=== PATIENT | female | born 1990 | race Caucasian/White ===

== ENCOUNTER 2023-05-21 02:35 | Emergency (ER) | payer BC, SELFPAY ==
[2023-05-21 02:37] VITALS: BP 103/68
[2023-05-21] MEDS: NSS 1000 IV (03:40)
[2023-05-21] MEDS: ZOFRAN 4 MG IV (03:42)
[2023-05-21 03:43] VITALS: BP 104/57
[2023-05-21 03:43] LABS: % Basophils 0.3 % (0-2); % Eosinophils 0.3 % (0-6); % Immature Granulocytes 0.4 % (0-0.5); % Lymphocytes 8.7 % (20.5-51.1); % Neutrophils 88.3 % (42.2-75.2); Absolute Lymphocytes 0.7 10^3/uL (1.2-3.4); Absolute Monocytes 0.2 10^3/uL (0.1-0.6); Absolute Neutrophils 6.6 10^3/uL (1.4-6.5); Hematocrit 34.6 % (37.0-47.0); Hemoglobin 12.3 g/dL (12.0-16.0); Mean Corp Hgb Conc. 35.5 g/dL (33.0-37.0); Mean Corpuscular Hgb 31.8 pg (27.0-31.0); Mean Corpuscular Volume 89.4 fL (81.0-99.0); Mean Platelet Volume 10.2 fL (7.4-10.4); Nucleated Red Blood Cells % 0 %; Platelet Count 157 10^3/uL (130-400); Red Blood Cell Count 3.87 10^6/uL (4.20-5.40); Red Cell Dist. Width 11.9 % (11.5-14.5); White Blood Cell Count 7.5 10^3/uL (4.8-10.8)
[2023-05-21 03:51] LABS: Erythrocyte Sed Rate 1 mm/hour (0-20)
--- NOTE | 2023-05-21 03:52 | ED.GENMED ---
History of Present Illness
<RAUL Fields - Last Filed: 05/21/23 05:54>
General
Chief Complaint: Headache
Source: patient
Exam Limitations: none
Time Seen by Provider: 05/21/23 02:45
Nursing documentation reviewed up to this point in time: agreed with
Travel History
Have you had any contact with someone who has COVID-19?: No
Do you have any symptoms of coronavirus? Fever > 100 degrees, chills, cough, shortness of breath, sore throat, loss of taste or smell, muscle aches, or headache?: No
History of Present Illness
History of Present Illness:
32 y/o F presents to ED complaining up headache and vomiting at 0145. Patient states she woke from her sleep shaking, SOB and dizzy. Patient states when she sat up in bed she vomited. Patient reports she has vomited 4x since, vomit is nonbloody and
non-bilious. Patient reports SOB has resolved and shaking has since gotten better after shes been in ED bed. Patient also reports her hands, feet and calf have been throbbing. She states she has not been well hydrated and reports feeling dehydrated.
Patient also has 6/10 headache that has been constant since she woke up. She states the headache is in the front of her head and feels like a tight band around head. She states it is not like her usual migraines which are toward the back of her
head. She has not taken any medications. Patient reports she felt fine all day. She denies chest pain, palpitations, diarrhea, abdominal pain, leg pain, recent travel/flights, cough, congestion, sore throat, dysuria or back pain.
If applicable-neuro sx onset
Onset of symptoms known: Yes
Date of onset of symptoms: 05/21/23
Time of onset of symptoms: 01:45
Review of Systems
<RAUL Fields - Last Filed: 05/21/23 05:54>
Review of Systems
Allergies reviewed?: Yes
All Other Systems: ROS reviewed and negative except as documented in HPI and ROS
Constitutional: Reports sleep disturbance and chills
EENT: Reports no symptoms
Respiratory: Reports trouble breathing
Cardiac: Reports no symptoms
ABD/GI: Reports vomiting
: Reports no symptoms
Musculoskeletal: Reports no symptoms
Skin: Reports no symptoms
Neurological: Reports dizzy and headache
Endocrine: Reports no symptoms
Hematologic/Lymphatic: Reports no symptoms
Psychiatric: Reports no symptoms
Phy Exam
<RAUL Fields - Last Filed: 05/21/23 05:54>
General Physical Exam
General Presentation: well appearing and no apparent distress
General age: appears stated age
General Skin: warm and dry
General Habitus: normal
General Mental: alert
General Hydration: appears well hydrated
ENT Exam
ENT Exam: EOMI, TM's normal, pharynx normal and neck supple
Eye Exam
Eye Exam: PERRL, EOMI and conjunctiva normal
Cardiovascular Exam
Cardiovascular Exam: regular rate/rhythm, no edema, no gallop, no murmur and normal peripheral pulses
Pulmonary Exam
Pulmonary Exam: lungs clear, no respiratory distress, no rales, no crackles and no rhonchi
Gastrointestinal Exam
Gastrointestinal Exam: non tender, soft and non distended
Neurological Exam
Neurological Exam: alert and oriented x3
Skin Exam
Skin Exam: normal color, warm/dry and no rash
Psychiatric Exam
Psychiatric Exam: normal mood/affect
Course
<RUAL Fields - Last Filed: 05/21/23 05:54>
Orders/Labs/Results
Orders:
Orders
05/21/23 03:03
CT Head W/o Iv Contrast Urgent
Comment:
Reason For Exam: headache
05/21/23 03:18
Test Result ONCE
05/21/23 03:36
Complete Blood Count/With Diff Urgent
Comprehensive Metabolic Panel Urgent
Erythrocyte Sed Rate Urgent
HCG, Serum Qualitative Screen Urgent
PTT Urgent
Prothrombin Time Urgent
TSH Urgent
Troponin I Urgent
05/21/23 03:37
Ondansetron Injectable [Zofran] 4 mg .ROUTE .STK-MED ONE
05/21/23 03:41
Ondansetron Injectable [Zofran] 4 mg IV NOW STA
05/21/23 03:45
0.9% Sodium Chloride 1000 ml [Nss] 1,000 ml IV BOLUS
05/21/23 04:14
COVID-19 Antigen Urgent
Source: Nasal Swab
Influenza A+B Rapid Molecular Urgent
TIMI Source: Nasal Swab
Specimen Description:
05/21/23 05:13
Acetaminophen [Tylenol] 650 mg .ROUTE .STK-MED ONE
05/21/23 05:15
Acetaminophen [Tylenol] 650 mg PO NOW STA
Abnormal Lab Results
05/21/23
03:36
RBC 3.87 L 10^6/uL
(4.20-5.40)
Hct 34.6 L %
(37.0-47.0)
MCH 31.8 H pg
(27.0-31.0)
Absolute Neuts (auto) 6.6 H 10^3/uL
(1.4-6.5)
Absolute Lymphs (auto) 0.7 L 10^3/uL
(1.2-3.4)
Neutrophils % 88.3 H %
(42.2-75.2)
Lymphocytes % 8.7 L %
(20.5-51.1)
APTT 22.2 L Sec
(23.4-35.0)
BUN 21 H mg/dl
(7-17)
Glucose 101 H mg/dl
(70-99)
Total Protein 6.2 L g/dl
(6.3-8.2)
05/21/23 03:36
05/21/23 03:36
Vital Signs
Initial and Last Documented VS:
Initial Vital Signs
Temp Pulse Resp BP Pulse Ox
99.6 F 100 22 103/68 96
05/21/23 02:37 05/21/23 02:37 05/21/23 02:37 05/21/23 02:37 05/21/23 02:37
Last Documented Vital Signs
Temp Pulse Resp BP Pulse Ox
99.6 F 84 19 107/59 96
05/21/23 02:37 05/21/23 06:11 05/21/23 06:11 05/21/23 06:00 05/21/23 06:00
<Simon Siddiqi, - Last Filed: 05/21/23 06:18>
Orders/Labs/Results
Orders:
Orders
05/21/23 03:03
CT Head W/o Iv Contrast Urgent
Comment:
Reason For Exam: headache
05/21/23 03:18
Test Result ONCE
05/21/23 03:36
Complete Blood Count/With Diff Urgent
Comprehensive Metabolic Panel Urgent
Erythrocyte Sed Rate Urgent
HCG, Serum Qualitative Screen Urgent
PTT Urgent
Prothrombin Time Urgent
TSH Urgent
Troponin I Urgent
05/21/23 03:37
Ondansetron Injectable [Zofran] 4 mg .ROUTE .STK-MED ONE
05/21/23 03:41
Ondansetron Injectable [Zofran] 4 mg IV NOW STA
05/21/23 03:45
0.9% Sodium Chloride 1000 ml [Nss] 1,000 ml IV BOLUS
05/21/23 04:14
COVID-19 Antigen Urgent
Source: Nasal Swab
Influenza A+B Rapid Molecular Urgent
TIMI Source: Nasal Swab
Specimen Description:
05/21/23 05:13
Acetaminophen [Tylenol] 650 mg .ROUTE .STK-MED ONE
05/21/23 05:15
Acetaminophen [Tylenol] 650 mg PO NOW STA
Abnormal Lab Results
05/21/23
03:36
RBC 3.87 L 10^6/uL
(4.20-5.40)
Hct 34.6 L %
(37.0-47.0)
MCH 31.8 H pg
(27.0-31.0)
Absolute Neuts (auto) 6.6 H 10^3/uL
(1.4-6.5)
Absolute Lymphs (auto) 0.7 L 10^3/uL
(1.2-3.4)
Neutrophils % 88.3 H %
(42.2-75.2)
Lymphocytes % 8.7 L %
(20.5-51.1)
APTT 22.2 L Sec
(23.4-35.0)
BUN 21 H mg/dl
(7-17)
Glucose 101 H mg/dl
(70-99)
Total Protein 6.2 L g/dl
(6.3-8.2)
05/21/23 03:36
05/21/23 03:36
Vital Signs
Initial and Last Documented VS:
Initial Vital Signs
Temp Pulse Resp BP Pulse Ox
99.6 F 100 22 103/68 96
05/21/23 02:37 05/21/23 02:37 05/21/23 02:37 05/21/23 02:37 05/21/23 02:37
Last Documented Vital Signs
Temp Pulse Resp BP Pulse Ox
99.6 F 84 19 107/59 96
05/21/23 02:37 05/21/23 06:11 05/21/23 06:11 05/21/23 06:00 05/21/23 06:00
<RAUL Fields - Last Filed: 05/21/23 05:54>
MDM/Problems Addressed
Differential Diagnosis Includes:
Migraine
Viral gastroenteritis
Flu
COVID
Anxiety
MDM/Problems Addressed:
Patient is 32 y/o F who presents with vomiting, headache, and chills x [address] scan ordered and normal. Patient symptoms may be viral in etiology. Migraine considered given history of migraines. Will order flu/covid.
<RAUL Fields - Last Filed: 05/21/23 05:54>
*Critical Care Note
Total Time (30-74mins, 75-104mins- exclusive of procedures): Not Applicable
<RAUL Fields - Last Filed: 05/21/23 05:54>
Update Note
Update Note:
05/21/2023 0507: Patient reports she is doing better. Reports nausea and vomiting have subsided. She is not having chills/shaking anymore. Patient flu and covid negative. She is still reporting a headache.
ED Attending Note
<RAUL Fields - Last Filed: 05/21/23 05:54>
-
Portions of this chart may have been created with voice recognition software.� Occasional wrong word or��sound alike� substitutions may have occurred due to the inherent limitations of voice recognition software.
<Simon Siddiqi DO - Last Filed: 05/21/23 06:18>
ED Attending Note
Patient seen and examined by attending physician: Yes
I performed the substantive portion of visit, reviewed & personally made and approve the management plan that is documented in note by myself or CHRISTIAN.: Yes
ED Attending Note:
32-year-old female presents with a headache and vomiting that began around 1:45 AM. Patient suffers from migraines but states that this headache was not as severe. She feels that it is the typical headaches she gets after vomiting. She states
that she awakened from sleep shaking. She did have some brief shortness of breath and dizziness at the time. Patient has vomited 4 times since the initial incident. She states that she has been feeling dehydrated lately. Patient did not take any
medications. She is accompanied by her . Patient was seen in conjunction with the PA student. I have reviewed and agree with the history and treatment plan presented. On my independent physical exam, patient is awake, alert, and oriented
x3, no apparent distress. Heart is regular rate rhythm. Lungs clear to auscultation bilaterally without wheezes rales or rhonchi. Patient is mentating appropriately.
05/21/2023 0614 AM: Back in to see the patient. She is resting comfortably. She wishes to be discharged. She states that she feels better after fluids.
Discharge Plan
Departure
Patient Disposition: Home (Routine Discharge)
Date of Disposition: 05/21/23
Time of Disposition: 06:15
Patient with high blood pressure during this ER visit?: No
Condition: Good
Discharge Problem:
Weakness, Acute dehydration, Headache
Instructions: Dehydration, Adult (DC), Headache, Adult (DC)
Prescriptions:
No Action
No Current Medications
0
Referrals:
Kanchan Baldwin MD [Family Provider] -
Activity Restrictions/Additional Instructions:
It was a pleasure meeting you and taking part in your care. We hope for your continued healing and wellness.
Please read discharge instructions in their entirety. However, they are for general education and may not describe your exact diagnosis at discharge. Information on your ER visit and medical conditions were discussed with you along with appropriate
follow up information...
If indicated, please take your medications as instructed and indicated on discharge paperwork.
Please schedule a follow up appointment as directed. Call to schedule an appointment
Please return to the emergency department with ANY change in, persisting, or worsening of symptoms. If any of your symptoms do not improve, or persist, or become more severe within 6-12 hours, please return to the emergency department for further
care.
Please return to the emergency department if you develop a headache, neck pain/stiffness, fever greater than 100.4F, chest pain, shortness of breath, persistent nausea, vomiting, slurred speech, difficulty walking, numbness/tingling, weakness, signs
of infection or any other symptoms that are worrisome to you.
If you have any questions or concerns please do not hesitate to call the Hospital at or E-mail me directly at [email or web address]
Interventions
Interventions:
*Risk Screen - Suicide Last Done: 05/21/23 02:37
*General Assessment Last Done: 05/21/23 02:37
*Neglect/Abuse Screening Last Done: 05/21/23 02:37
ED- Fall Risk Assessment Last Done: 05/21/23 02:37
*ED COVID-19 Vaccine History Last Done: 05/21/23 02:37
*Nursing Disposition Last Done: 05/21/23 06:14
ED- Neurological Assessment Last Done: 05/21/23 03:45
[2023-05-21 03:54] LABS: INR 1.11; PT 14.4 Sec (11.4-14.6)
[2023-05-21 03:55] LABS: APTT 22.2 Sec (23.4-35.0)
[2023-05-21 03:58] LABS: HCG, Serum Qualitative Screen Negative
[2023-05-21 04:00] VITALS: BP 101/60
[2023-05-21 04:09] LABS: Troponin I < 0.012 ng/ml
[2023-05-21 04:10] LABS: ALT (SGPT) 21 U/L (0-35); AST (SGOT) 27 U/L (14-36); Albumin 3.7 g/dl (3.5-5.0); Alkaline Phosphatase 41 U/L (38-126); Blood Urea Nitrogen 21 mg/dl (7-17); Calcium 8.8 mg/dl (8.4-10.2); Carbon Dioxide 28 mmol/L (22-30); Chloride 103 mmol/L (98-107); Glucose 101 mg/dl (70-99); Potassium 3.7 mmol/L (3.5-5.1); Sodium 138 mmol/L (135-145); Total Bilirubin 1.1 mg/dl (0.2-1.3); Total Protein 6.2 g/dl (6.3-8.2); eGFR > 60.00
[2023-05-21 04:38] LABS: COVID-19 Antigen Negative (Negative)
[2023-05-21 04:38] LABS: TSH 2.06 uIU/ml (0.47-4.68)
[2023-05-21 05:00] VITALS: BP 105/62
[2023-05-21] MEDS: TYLENOL 650 MG PO (05:15)
[2023-05-21 06:00] VITALS: BP 107/59
== END 2023-05-21 06:21 | disposition home or self-care (01) ==
LOC: EMR 02:35
PROVIDERS: EMERGENCY PHYSICIAN Student in an Organized Health Care Education/Training Program; FAMILY PHYSICIAN Family Medicine
DX: R53.1 Weakness (principal); E86.0 Dehydration; R51.9 Headache, unspecified; R11.2 Nausea with vomiting, unspecified; F41.9 Anxiety disorder, unspecified
CPT/HCPCS: 99284; 96374; 96361; 70450; 80053; 84443; 84484; 84703; 85025; 85610; 85652; 85730; 87502; 87811

== ENCOUNTER → 2023-10-06 14:46 | Outpatient (REF) | payer BC, SELFPAY ==
[2023-10-06 16:24] LABS: % Basophils 0.7 % (0-2); % Eosinophils 0.3 % (0-6); % Immature Granulocytes 0.3 % (0-0.5); % Lymphocytes 25.9 % (20.5-51.1); % Monocytes 4.3 % (1.7-9.3); % Neutrophils 68.5 % (42.2-75.2); Absolute Lymphocytes 1.6 10^3/uL (1.2-3.4); Absolute Monocytes 0.3 10^3/uL (0.1-0.6); Absolute Neutrophils 4.2 10^3/uL (1.4-6.5); Hematocrit 37.5 % (37.0-47.0); Hemoglobin 13.1 g/dL (12.0-16.0); Mean Corp Hgb Conc. 34.9 g/dL (33.0-37.0); Mean Corpuscular Hgb 31.9 pg (27.0-31.0); Mean Corpuscular Volume 91.2 fL (81.0-99.0); Mean Platelet Volume 10.9 fL (7.4-10.4); Nucleated Red Blood Cells % 0 %; Platelet Count 213 10^3/uL (130-400); Red Blood Cell Count 4.11 10^6/uL (4.20-5.40); Red Cell Dist. Width 11.9 % (11.5-14.5); White Blood Cell Count 6.1 10^3/uL (4.8-10.8)
[2023-10-06 16:38] LABS: ALT (SGPT) 24 U/L (0-35); AST (SGOT) 33 U/L (14-36); Albumin 4.9 g/dl (3.5-5.0); Alkaline Phosphatase 48 U/L (38-126); Blood Urea Nitrogen 11 mg/dl (7-17); Calcium 9.6 mg/dl (8.4-10.2); Carbon Dioxide 24 mmol/L (22-30); Chloride 105 mmol/L (98-107); Glucose 78 mg/dl (70-99); Potassium 3.8 mmol/L (3.5-5.1); Sodium 140 mmol/L (135-145); Total Bilirubin 0.5 mg/dl (0.2-1.3); Total Protein 7.1 g/dl (6.3-8.2); eGFR > 60.00
[2023-10-06 16:50] LABS: Amylase 69 U/L (30-110); Lipase 61 U/L (23-300)
== END ==
LOC: RAD 14:46
PROVIDERS: ATTENDING PHYSICIAN Physician Assistant Medical
DX: R10.9 Unspecified abdominal pain (principal); D22.9 Melanocytic nevi, unspecified; R19.7 Diarrhea, unspecified; M54.9 Dorsalgia, unspecified
CPT/HCPCS: 36415; 76700; 80053; 82150; 83690; 85025

== ENCOUNTER → 2024-06-14 09:14 | Outpatient (REF) | payer BC, SELFPAY | LOC: RCS 09:14 | PROVIDERS: ATTENDING PHYSICIAN Nurse Practitioner | DX: R00.2 Palpitations (principal) | CPT/HCPCS: 93225; 93226 ==

== ENCOUNTER 2024-10-11 10:59 | Observation (INO) | payer BC, SELFPAY ==
[2024-10-11 11:10] VITALS: BP 101/64; BMI 21.9
[2024-10-11 11:33] LABS: Urine Character Clear (Clear)
== END 2024-10-11 14:26 | disposition home or self-care (01) ==
LOC: LDRP 10:59
PROVIDERS: ADMITTING PHYSICIAN Obstetrics & Gynecology; FAMILY PHYSICIAN Physician Assistant
DX: O99.891 Other specified diseases and conditions complicating pregnancy (principal); N13.30 Unspecified hydronephrosis; Z3A.27 27 weeks gestation of pregnancy; O99.342 Other mental disorders complicating pregnancy, second trimester; F32.A Depression, unspecified; F41.9 Anxiety disorder, unspecified
CPT/HCPCS: 59025; 76770; 76815; 81003; 87086; G0378

== ENCOUNTER → 2024-10-20 09:20 | Outpatient (REF) | payer BC, SELFPAY | LOC: PNTC 09:20 | PROVIDERS: ATTENDING PHYSICIAN Obstetrics & Gynecology | DX: Z34.02 Encounter for supervision of normal first pregnancy, second trimester (principal) | CPT/HCPCS: 36415; 86850; 86900; 86901; 96372; J2790 ==

== ENCOUNTER 2025-01-08 14:11 | Inpatient (IN) | payer BC, SELFPAY ==
[2025-01-08 14:27] VITALS: BP 128/80; BMI 27.4
[2025-01-08 16:14] LABS: Hematocrit 35.0 % (37.0-47.0); Hemoglobin 12.3 g/dL (12.0-16.0); Mean Corp Hgb Conc. 35.1 g/dL (33.0-37.0); Mean Corpuscular Volume 90.9 fL (81.0-99.0); Nucleated Red Blood Cells % 0 %; Platelet Count 147 10^3/uL (130-400); Red Cell Dist. Width 12.2 % (11.5-14.5)
[2025-01-08] MEDS: LR 1000 IV ×3 (16:47→22:34)
[2025-01-08] MEDS: SUBLIMAZE 100 MCG EPIDURAL (16:50)
[2025-01-08] MEDS: FENTANYL/BUPIVACAINE 100 EPIDURAL (16:51)
[2025-01-08] MEDS: ZOFRAN 4 MG IV (22:34)
[2025-01-09] MEDS: FENTANYL/BUPIVACAINE 100 EPIDURAL (00:49)
[2025-01-09] MEDS: TYLENOL 650 MG PO ×3 (06:31→16:23)
[2025-01-09] MEDS: MOTRIN 600 MG PO ×2 (06:31→13:05)
[2025-01-09] MEDS: COLACE 100 MG PO (10:28)
[2025-01-09] MEDS: PRENATAL PLUS 1 TABLET PO (10:28)
[2025-01-09] MEDS: RHOGAM 300 MCG IM (11:57)
[2025-01-09 16:26] LABS: Hematocrit 29.6 % (37.0-47.0); Hemoglobin 10.3 g/dL (12.0-16.0)
[2025-01-11 13:33] LABS: Syphilis/T. pallidum Ab Reflex Negative (Negative)
== END 2025-01-09 18:28 | disposition home or self-care (01) | DRG 806 ==
LOC: LDRP 14:11
PROVIDERS: Student in an Organized Health Care Education/Training Program; ADMITTING PHYSICIAN Obstetrics & Gynecology
PROC: 3E0334Z Introduction of Serum, Toxoid and Vaccine into Peripheral Vein, Percutaneous Approach (ICD-10-PCS; 2025-01-09)
PROC: 10E0XZZ Delivery of Products of Conception, External Approach (ICD-10-PCS; 2025-01-09)
PROC: 10907ZC Drainage of Amniotic Fluid, Therapeutic from Products of Conception, Via Natural or Artificial Opening (ICD-10-PCS; 2025-01-09)
PROC: 0KQM0ZZ Repair Perineum Muscle, Open Approach (ICD-10-PCS; 2025-01-09)
DX: O26.893 Other specified pregnancy related conditions, third trimester (principal); N13.30 Unspecified hydronephrosis; Z37.0 Single live birth; Z67.31 Type AB blood, Rh negative; Z3A.39 39 weeks gestation of pregnancy; O77.0 Labor and delivery complicated by meconium in amniotic fluid; O76 Abnormality in fetal heart rate and rhythm complicating labor and delivery; O70.1 Second degree perineal laceration during delivery; O99.344 Other mental disorders complicating childbirth; F32.A Depression, unspecified; O99.892 Other specified diseases and conditions complicating childbirth
CPT/HCPCS: 36415; 85014; 85018; 85025; 85461; 86780; 86850; 86870; 86900; 86901; 88307; J2790